=== PATIENT | male | born 1935 | race Caucasian/White ===

== ENCOUNTER 2017-09-15 18:12 | Emergency (ER) | payer OTHER, MEDICAID ==
[2017-09-15 18:19] VITALS: BMI 17.0
[2017-09-15 19:24] LABS: BILIRUBIN,URINE NEGATIVE (NEGATIVE); BLOOD/HEMOGLOBIN,URINE 5+ (NEGATIVE); GLUCOSE, URINE NEGATIVE (NEGATIVE); KETONES,URINE NEGATIVE (NEGATIVE); LEUKOCYTE ESTERASE ,URINE 2+ (NEGATIVE); NITRITES,URINE POSITIVE (NEGATIVE); PROTEIN,URINE 3+ (NEGATIVE); UROBILINOGEN,URINE NORMAL (NORMAL)
--- NOTE | 2017-09-15 19:30 | DR.UPM ---
HPI - Time Seen Time seen: 19:00 - PCP Primary Care Physician: VIVIANE - HPI Comment HPI Comment: HISTORY BELOW. - Complaint Chief Complaint Doctors Comments: INDWELLING MURILLO CATH RECENTLY PLACE FOR URINARY RETENTION. PATIENT WITH HISTORY OF BPH AND UTI. NO FEVER. SOME LOWER ABDOMINAL DISCOMFORT. Chief Complaint:: PT. STATES HE HAS HAD AN INDWELLING MURILLO CATHETHER X 1 MONTH AND IT HAS BEEN LEAKING AROUND THE INSERTION SITE FOR A FEW DAYS. PT. STATES HE HAD IT INITIALLY PUT IN BECAUSE HE WAS HAVING URINARY RETENTION AND HE SAYS HE HAD AN INFECTION. - Reviewed Nurses Notes Reviewed: Yes - Source History Provided: Patient - Mode of Arrival Mode of Arrival: Wheelchair - Timing Onset of Chief Complaint: 09/12/17 - Duration Duration: Constant Duration: Days Min/Hrs: Hours - Context Onset: Spontaneous Urinary Symptoms: Inabiltiy to void History of: UTI, Urinary Obstruction, BPH, Chronic Indwelling Murillo - Severity Pain: Moderate Inability to Void: Mild - Location Pain Location: Suprapubic - Modifying Factors Medications: None - Associated Signs and Symptoms Associated Signs and Symptoms: None PMH - PMH Past Medical History: Yes Past Medical History Comment: EMPHYSEMA, PROSTATE PROBLEMS Past Surgical History: Yes Surgical History: Other Past Surgical History Comment: SKIN CANCER REMOVAL - Family History History of Family Medical Conditions: No - Social History Does patient currently use any type of tobacco product: Yes Have you used tobacco products in the last 12 months: Yes Type of Tobacco Use: Cigarettes Does any household member use tobacco: No Alcohol Use: None Do you use any recreational Drugs:: No Lives With: Family Lives Where: Home - infectious screening In the last 2 months have you had wt loss of >10#?: NO Have you had fever, night sweats or hemotysis?: No Have you traveled outside the country in the last 6 months?: No Isolation: Standard ROS - Review of Systems Constitutional: Weakness, Fatigue. negative: Fever Eyes: No Symptoms Reported. negative: Eye Pain, Discharge ENTM: No Symptoms Reported. negative: Ear Pain, Nose Discharge, Nose Congestion , Throat Pain Respiratoy: No Symptoms Reported, Non-Productive Cough. negative: Short of Breath, Wheezing, Hemoptysis Cardiovascular: negative: Chest Pain, Edema Gastrointestinal/Abdominal: Abdominal Pain. negative: Diarrhea, Nausea, Vomiting Genitourinary: Dysuria. negative: Frequency, Hematuria Neurological: Weakness Musculoskeletal: No Symptoms Reported Integumentary: No Symptoms Reported Hematologic/Lymphatic: No Symptoms Reported Endocrine: No Symptoms Reported All Other Systems: Reviewed and Negative PE - Vital Signs Vitals: Temperature 98.7 F Pulse Rate [Right] 92 Pulse Rate 97 Respiratory Rate 17 Blood Pressure [Left Arm] 111/68 Blood Pressure 107/69 O2 Sat by Pulse Oximetry 98 - General Limitations: No Limitations General Appearance: Alert - Head Head Exam: Normal Inspection - Eyes Eye exam: Normal Appearance - ENT ENT Exam: Normal External Ear Exam - Neck Neck Exam: Trachea Midline - Chest Chest Inspection: Symmetric Chest Wall Rise - Respiratory Respiratory Exam: Normal Lung Sounds Bilat Respiratory Exam: Bilateral Clear to Auscultation - Cardiovascular Cardiovascular Exam: Regular Rate, Normal Rhythm, Normal Heart Sounds - Abdominal Exam Abdominal Exam: Normal Bowel Sounds, Soft, Other (BLADDER PALPABLE.). negative : Tenderness - Rectal Rectal Exam: Deferred - Genitourinary Exam: Male: Normal Inspection - Extremities Extremities Exam: Normal Inspection - Back Back Exam: Normal Inspection - Neurologic Neurological Exam: Alert, Oriented X3 - Psychiatric Psychiatric Exam: Normal Affect, Normal Mood - Skin Skin Exam: Normal Color MDM - Additional Information Obtained Additional Information Obtained From: Family - Differential Diagnosis Differential Diagnosis: Epidydymitis, Prostatitis, Urethritis, Urinary Retention , Urolithiasis, UTI Course - Treatment Treatment: SEE ORDERS. MURILLO CATH REPLACE BY NURSE. - Education/Counseling Education/Counseling: Patient, Family, Education Educated On: Diagnosis, Needs for Follow Up ROR - Labs Reviewed Laboratory Results Reviewed?: Yes Laboratory: 09/15/17 19:10 Urine,Catheterized Urine Culture - Final Specimen Type Catherized urine 09/15/17 19:10 Urine Color Dark yellow (YELLOW) 09/15/17 19:10 Urine Appearance Cloudy (CLEAR) 09/15/17 19:10 Urine pH 8.0 (5.0 - 8.0) 09/15/17 19:10 Ur Specific [place] 1.010 (1.000-1.030) 09/15/17 19:10 Urine Protein 3+ (NEGATIVE) 09/15/17 19:10 Urine Glucose (UA) Negative (NEGATIVE) 09/15/17 19:10 Urine Ketones Negative (NEGATIVE) 09/15/17 19:10 Urine Occult Blood 5+ (NEGATIVE) 09/15/17 19:10 Urine Nitrite Positive (NEGATIVE) 09/15/17 19:10 Urine Bilirubin Negative (NEGATIVE) 09/15/17 19:10 Urine Urobilinogen Normal (NORMAL) 09/15/17 19:10 Ur Leukocyte Esterase 2+ (NEGATIVE) 09/15/17 19:10 Urine RBC Tntc /HPF (NEGATIVE) 09/15/17 19:10 Urine WBC 4-10 /HPF (NEGATIVE) 09/15/17 19:10 Ur Squamous Epith Cells Rare /HPF (NEGATIVE) 09/15/17 19:10 Amorphous Sediment 1+ /HPF (NEGATIVE) 09/15/17 19:10 Urine Bacteria Trace /HPF (NEGATIVE) 09/15/17 19:10 Ur Culture Indicated? Yes/culture set up 09/15/17 19:10 - Diagnosis Discharge Problem: Urinary retention UTI (urinary tract infection) Qualifiers: Urinary tract infection type: urethritis Qualified Code(s): N34.2 - Other urethritis - Discharge Plan Disposition: HOME, SELF-CARE Condition: Stable Prescriptions: Ciprofloxacin HCl [CIPRO 500 MG TAB *] 500 mg PO Q12H #20 tab - Follow ups/Referrals Follow ups/Referrals: [facility],None [Primary Care Provider] - 3 days ADELINE SHELDON [CONSULTING PHYSICIAN] - 3 days - Instructions Instructions: Urinary Tract Infection, Adult, [id number], Acute Urinary Retention, Male, [id number] Additional Instructions: RETURN TO ED IF WORSE. FOLLOW UP WITH UROLOGIST.
[2017-09-15 19:46] LABS: AMORPHOUS SEDIMENT,UR 1+ /HPF (NEGATIVE); APPEARANCE,URINE CLOUDY (CLEAR); BACTERIA,URINE TRACE /HPF (NEGATIVE); COLOR,URINE DARK YELLOW (YELLOW); RBC,URINE TNTC /HPF (NEGATIVE); SQUAMOUS EPITHELIAL CELL,UR RARE /HPF (NEGATIVE)
[2017-09-15] MEDS ORDERED: CIPRO TAB 500 MG PO ONE ×2 (19:56→20:04)
[2017-09-15 20:29] VITALS: BP 111/68
== END 2017-09-15 20:20 | disposition home or self-care (01) ==
LOC: ER 18:45
PROC: 0T9B70Z Drainage of Bladder with Drainage Device, Via Natural or Artificial Opening (ICD-10-PCS; principal; 2017-09-15)
DX: N34.2 Other urethritis (principal); R33.9 Retention of urine, unspecified
CPT/HCPCS: 51702; 81001; 87086; 99282; 99283